=== PATIENT | male | born 1950 | race Caucasian/White ===

== ENCOUNTER → 2016-12-01 | Outpatient (CLI) | payer BC ==
--- NOTE | 2016-12-02 10:07 | Diagnostic Imaging Report ---
PROCEDURE: MRI right joint upper extremity without contrast. TECHNIQUE: Multiplanar, multisequence non contrast-enhanced MRI of the right upper extremity was accomplished. INDICATION: Right shoulder pain. There is reportedly a cystic bone lesion seen on radiograph. FINDINGS: There is no os acromiale or Hill-Sachs deformity. The acromioclavicular joint demonstrates minimal inferior osteophytes and subchondral edema. The supraspinatus demonstrates partial tears in the distal tendon with undersurface and bursal side tears seen. The infraspinatus demonstrates tendinosis with an under surface partial tear with associated small cystic change near the insertion of the infraspinatus in the lateral aspect of the humeral head. The subscapularis distal the tendon demonstrate the increased signal probably from tendinosis. No full-thickness or retracted tear. There is a focal area of fluid distention in the tendon sheath of the long head biceps tendon around the lower aspect of the bicipital groove level, suggestive of tenosynovitis. Slight increased signal in the tendon substance at this level may relate to a nondisplaced partial tear or tendinosis. The glenoid labrum demonstrates increased signal in the superior and posterior segments suggestive of degeneration or nondisplaced tears. This can be better evaluated with MR arthrogram, if needed. The muscle bulk and signal are normal. There is a low intensity lesion within the bone marrow of the proximal right humerus shaft involving an area measuring 2.5 x 1 x 1.9 cm. There is slight irregularity of the overlying cortex seen. There is a T2 hyperintense signal component within this region seen. There is no significant bone marrow edema surrounding it. There is a question of irregularity along the anterior cortex of the humerus at this location just inferior to the bicipital groove. This could be however an artifact, low signal from tendon insertion. No definite associated soft tissue mass although an enhanced MRI is more optimal for such evaluation. IMPRESSION: 1. Findings of partial rotator cuff tears and suggestion of labrum tears or degeneration. 2. Focal tenosynovitis and intrasubstance partial tear involving the long head biceps tendon near the lower aspect of the bicipital groove. 3. Predominantly sclerotic lesion along the anterior aspect of the neck of the humerus is seen. Low intensity signal is seen anterior to the cortex at this level is believed to relate to muscle tendon insertion rather than periosteal reaction or cortical irregularity. Although this study is obtained without intravenous contrast, no definitive soft tissue component is seen. However, confirmation of a preserved anterior cortex and lack of irregularity with evaluation, a CT scan of the humerus without and with intravenous contrast is recommended. Dictated on workstation # [id number]
== END ==
LOC: RAD 11:31
PROVIDERS: ATTEND Orthopaedic Surgery
DX: M85.621 Other cyst of bone, right upper arm (principal); M75.101 Unspecified rotator cuff tear or rupture of right shoulder, not specified as traumatic; M65.811 Other synovitis and tenosynovitis, right shoulder
CPT/HCPCS: 73221

== ENCOUNTER → 2016-12-13 | Outpatient (CLI) | payer BC ==
[~2016-12-13] MED LIST: CATHETER FLUSH 10 ML SYR IV PRN; IOHEXOL 350 MG/ML 100 ML (OMNIPAQUE 350) VIAL IV ONE; NS 100 ML (IVPB) BAG IV ONE
[2016-12-13 09:38] LABS: BLOOD UREA NITROGEN 22 MG/DL (7-18); BUN/CREATININE RATIO 26 (0-20); CREATININE SERUM 0.86 MG/DL (0.60-1.30); GFR ESTIMATED > 60
--- NOTE | 2016-12-13 13:32 | Diagnostic Imaging Report ---
CT scan of the right arm with and without intravenous contrast. INDICATION: Bone lesion in the proximal right humerus. MRI demonstrated low signal adjacent to the anterior cortex which could be related to tendon insertion. Evaluate if the cortex is intact. 100 mL of Omnipaque 350 is administered intravenously. FINDINGS: There is a predominantly sclerotic bone lesion based on the cortex and endosteum of the proximal humerus measuring 2.2 x 1 x 3 cm craniocaudally. It has a narrow zone of transition, lobulated margins and is associated with an intact outer margin of the cortex. The low intensity linear areas seen on MRI are not related to an aggressive periosteal reaction or osteophyte mass. There is no soft tissue component. No abnormal enhancement or enhancing nodule is seen when comparing the unenhanced with the postcontrast images. The surrounding muscles have normal density and bulk. The shoulder and elbow joints appear grossly unremarkable. IMPRESSION: Peripheral predominantly sclerotic lesion within the proximal humerus is confined to the bone with no aggressive features or soft tissue mass suggestive of benign etiology such as ossifying fibroma or fibrous dysplasia. Followup with humerus radiographs to prove stability is recommended starting at 3 months' interval. Dictated by: Dictated on workstation # [id number]
== END ==
LOC: RAD 09:01
PROVIDERS: ATTEND Orthopaedic Surgery
DX: M89.8X2 Other specified disorders of bone, upper arm (principal)
CPT/HCPCS: 36415; 73202; 82565; 84520

== ENCOUNTER → 2022-12-23 | Outpatient (CLI) | payer MEDICARE, OTHER ==
[~2022-12-23] VITALS: Ht 170 cm; Wt 78.0 kg
[~2022-12-23] MED LIST changes: -CATHETER FLUSH 10 ML SYR IV PRN; +CATHETER FLUSH 10 ML SYR IVP PRN; -IOHEXOL 350 MG/ML 100 ML (OMNIPAQUE 350) VIAL IV ONE; -NS 100 ML (IVPB) BAG IV ONE
[2022-12-23 08:00] VITALS: BP 154/75
--- NOTE | 2022-12-24 11:52 | Cardiology Stress Test Report ---
Stress Test Report Type of NM Stress Test: Test Type: NUCLEAR TREADMILL Date of Procedure/Referring: Date of Procedure: Dec 23, 2022 PCP Hadley Cuello DO Admitting Physician Admitting Physician: Attending Physician: Hadley Cuello DO Baseline Blood Pressure: Blood Pressure Systolic: 154 Blood Pressure Diastolic: 75 Summary & Conclusion: Summary: The patient was brought to the stress lab after informed consent was taken. Stress test was performed according to the roxy protocol. Please review Dr Cuello's report. 10.83 mCi of Myoview were given for rest imaging and 33 mCi of Myoview given for stress imaging. Transient ischemic dilatation score 0.9, EF 70 percent. Normal wall motion. Normal myocardial perfusion imaging during rest and stress. Conclusion: Normal LV function with no wall motion abnormalities. Normal myocardial perfusion imaging during rest and stress. Juan Jose ALEXANDER MD Dec 24, 2022 11:52
== END ==
LOC: CARD 07:15
PROVIDERS: ATTEND Internal Medicine
DX: I65.23 Occlusion and stenosis of bilateral carotid arteries (principal); I10 Essential (primary) hypertension
CPT/HCPCS: 78452; 93017; A9502